=== PATIENT | female | born 1980 | race Caucasian/White ===

== ENCOUNTER 2016-06-28 09:21 | Emergency (ER) | payer OTHER ==
[~2016-06-28] VITALS: Ht 170.2 cm; Wt 47.7 kg
[~2016-06-28 09:21] MED LIST: CYCL10TA9 PO; IBUP800T28 PO; VALA100026 PO
[2016-06-28 09:23] VITALS: PULSE 83; RESP 15; O2SAT 96
--- NOTE | 2016-06-28 09:38 | ED.REPORT ---
HPI-Extremity Problem Upper Date of Service Jun 28, 2016 ED Provider: Tony Reyes DO A 36 year old female with a history of prolapsed mitral valve, migraines, and neck arthritis presents to the ED complaining of a laceration to the left hand secondary to a carpel tunnel release 2 weeks ago (06/10). Patient recently had stitched removed 3 days ago. Her pain is exacerbated by movement. Associated symptoms include increased swelling, localized diaphoresis and a foul smell. She currently has a follow-up appointment with Dr. Lancaster on Wednesday. Patient has been using antibiotic ointment and bandages over the area. Nursing Notes Stated Complaint: LEFT HAND LACERATION Chief Complaint: Extremity Trauma Nursing Notes Reviewed: Yes Allergies: Coded Allergies: butalbital (Verified Allergy, Unknown, 08/31/15) promethazine (Verified Adverse Reaction, Severe, headache, 03/11/15) gabapentin (Verified Adverse Reaction, Intermediate, SHORTNESS OF BREATH, 06/28/16) Scheduled Cephalexin (Keflex) 500 Mg Capsule 500 MG PO QID Fluconazole (Fluconazole) 150 Mg Tablet 150 MG PO ONCE May repeat after 3 days if needed Scheduled PRN Cyclobenzaprine (Cyclobenzaprine) 10 Mg Tablet 10 MG PO TID PRN PRN Spasm Ibuprofen (Ibuprofen) 800 Mg Tablet 800 MG PO TID PRN PRN For Pain Valacyclovir (Valacyclovir) 1,000 Mg Tablet 1,000 MG PO Q12H PRN PRN outbreak oxyCODONE (oxyCODONE) 5 Mg Tablet 5 MG PO Q4H PRN PRN For Pain General Time Seen by MD: 09:37 Chief Complaint Hand Injury left Hx Obtained From: Patient Arrived By: Walk-in Onset Occurred: 3 days ago Symptom Duration: Since onset Location: : Hand left Quality: Painful Severity: Current: Mild Severity: Maximum: Mild Associated with: Reports: Joint swelling Pertinent Negative: Pt denies other symptoms Exacerbated by: Movement Recent Healthcare: Recent doctor visit, Recent hospitalization Past Medical History Past Medical History History of a previous pneumonia Prolapsed mitral valve Migraine axis neck arthritis C. Diff following recent hysterectomy Past Surgical History Carpel tunnel release 06/10/201608/19: hysterectomy bl saplingectomy uterosacral ligament suspension cystoscopy Left ear Carpal tunnel BTL 07/2014 Ruptured ovarian cyst Family History Reviewed, not relevant Smoking History Current Every Day Smoker Social History Alcohol Use: Denies alcohol use Drug Use: THC Other Social History: Good social support Occupation in the process of moving., , no work or school at this time01/25/2016 Ambulatory Status Independent Review of Systems Foul odor over left hand Constitutional: Denies: Chills, Fever Musculoskeletal: Reports: Joint pain (left hand ), Joint swelling (left hand ) Skin: Reports Diaphoresis, Reports Swelling Neurologic: Denies: Change LOC Complete sys rev & neg: except as marked. Physical Exam Initial Vital Signs Vital Signs (First) Date Time Temp Pulse Resp B/P Pulse Ox O2 Delivery O2 Flow Rate FiO2 06/28/16 09:23 36.3 83 15 96 Room Air Initial VS: Reviewed Head / Eyes: Atraumatic, Normocephalic, PERRL Neck: Supple, Non-tender, Full range of motion Lower Extremities: Vascular intact, Neuro intact, No swelling, No tenderness Skin: Warm, Dry, No cyanosis Neurologic: Alert, Oriented, Nonfocal Psychiatric: Mood/affect normal, Behavior normal, Normal thought content General/Constitutional: Awake, Alert Respiratory / Chest: Atraumatic, No respiratory distress Upper Extremity / MS: Atraumatic, Neurologic intact, Vascular intact Wrist / Hand: Atraumatic, Neurologic intact, Vascular intact Left Hand: Positive: Swelling present... (Significant ) WRIST/HAND: 1cm are of dehiscence over carpel tunnel on left 2 sutures superior over incision No purulence or drainage around wound Re-Eval/Medical Decision Re-Evaluation/Progress : Time of Eval: 09:53 Patient Status: Condition improved Re-Evaluation/Progress Note: Patient is rechecked. She is informed of consult recommendations and diagnosis.All of the patient's questions are adressed. She understands and agrees with the treatment plan. Consultation : Referral / Consult Name: Enzo Smith MD Consulted With: Ortho hand Call Returned at: 09:52 Demo Coordinator: Will see patient, Agrees with eval, Agrees with plan Note: Recommends Mastisol, steri strips and follow up tomorrow. Counseled Regarding: Diagnosis, Need for follow-up, When/why to return to ED Discharge & Departure Impression: Primary Impression: Wound dehiscence Encounter type: initial encounter Qualified Code: T81.31XA - Disruption of external operation (surgical) wound, not elsewhere classified, initial encounter Disposition: Home Discharge Condition All VS Reviewed: Yes Condition: Improved Patient Instructions: Acute Wound Care (ED) Additional Instructions: Thank you for trusting us with your care this morning. Your emergency department evaluation is reassuring that there is no dangerous cause for concern at this time but I recommend you follow-up with Dr. Carey' s office tomorrow for a recheck. I recommend that you keep the area open for the next 24 hours as covering it will make your hands sweat and cause the adhesive to break down. Please take 3-4x times per day Keflex to completion and take fluconazole as prescribed. It does not appear that you have an infection but as the wound has been open for 3 days I would certainly like to prevent it. Take 1 Oxycodone* every 4 hours as needed for pain. Please return to the emergency department immediately for any new or worsening conditions including any numbness/tingling, fever, chills worsening pain, redness, swelling or pus drainage. * One of the medications you have been prescribed is a narcotic and may cause drowsiness. Please do not drink, drive or use acetomorphine while taking this medication. Referrals: Juliana Burns (PCP) Enzo Smith MD Attestation Portions of this note were transcribed by Jyoti Beaver. I, Dr. Reyes personally performed the history, physical exam and medical decision-making; I reviewed and confirmed the accuracy of the information in the transcribed note. Signed by: Serafin Lopez, 06/28/16 1000. copies to: Juliana Burns; Enzo Smith MD, Gary R DO Jun 28, 2016 09:38 JYOTI BEAVER Jun 28, 2016 09:45 Tony Reyes DO Jun 28, 2016 09:38 [email or web address] Jun 28, 2016 09:45
[2016-06-28] MEDS ORDERED: OXYC5TAB72 PO (10:02)
[2016-06-28] MEDS ORDERED: CEPH-512 PO (10:02)
[2016-06-28] MEDS ORDERED: FLUC150T3 PO (10:09)
== END 2016-06-28 10:09 | disposition home or self-care (01) ==
LOC: SED 09:21
DX: T81.31XA Disruption of external operation (surgical) wound, not elsewhere classified, initial encounter (principal); Y83.8 Other surgical procedures as the cause of abnormal reaction of the patient, or of later complication, without mention of misadventure at the time of the procedure; Y92.9 Unspecified place or not applicable; Y93.9 Activity, unspecified; Y99.9 Unspecified external cause status; F17.200 Nicotine dependence, unspecified, uncomplicated; Z98.890 Other specified postprocedural states; Z86.79 Personal history of other diseases of the circulatory system; Z86.69 Personal history of other diseases of the nervous system and sense organs; Z87.39 Personal history of other diseases of the musculoskeletal system and connective tissue; Z87.01 Personal history of pneumonia (recurrent); Z88.8 Allergy status to other drugs, medicaments and biological substances